=== PATIENT | female | born 1990 | race Caucasian/White ===

== ENCOUNTER 2024-07-14 07:50 | Day surgery (SDC) | payer OTHER ==
[2024-07-11 08:31] VITALS: BP 123/89
[~2024-07-14] VITALS: Ht 157.5 cm; Wt 88.6 kg
[~2024-07-14 07:50] MED LIST: CEFAZOLIN SODIUM 2 GM/20 ML SYR IV SCH; DEXAMETHASONE SOD PHOS 4 MG/ML VIAL IV SCH; IBLOOD GLUCOSE TEST STRIP 1 EA TEST VI PRN; LACTATED RINGER'S 1,000 ML IV SCH; LIDOCAINE HCL 1% 5 ML SDV INJ ONE
[2024-07-14 07:58] VITALS: BP 130/84
[2024-07-14] MEDS ORDERED: fentaNYL citrate 100 MCG/2 ML VIAL ONE (08:50)
--- NOTE | 2024-07-14 08:50 | NUR ---
0850 SPOKE WITH DIRECTOR [employer] RICHELLE- DIRECTOR [employer] WILL GIVE DECADRON ORDERED AFTER PT IS ASLEEP. PULLED DOSE OF 4MG GIVEN TO DIRECTOR [employer] TO GIVE.
[2024-07-14] MEDS ORDERED: ACETAMINOPHEN 1,000 MG/100 ML VIAL ONE (08:54)
[2024-07-14] MEDS ORDERED: ROCURONIUM BROMIDE 50 MG/5 ML SYR ONE (08:54)
[2024-07-14] MEDS ORDERED: MAGNESIUM SULFATE 1 GM/2 ML VIAL ONE (08:54)
[2024-07-14] MEDS ORDERED: DEXAMETHASONE SOD PHOS 4 MG/ML VIAL ONE (08:54)
[2024-07-14] MEDS ORDERED: propofoL 200 MG/20 ML VIAL ONE (08:54)
[2024-07-14] MEDS ORDERED: ondansetron HCL 4 MG/2 ML VIAL ONE (08:54)
[2024-07-14] MEDS ORDERED: LIDOCAINE HCL 2% 5 ML SDV ONE (08:54)
[2024-07-14] MEDS ORDERED: LIDOCAINE 1% W/ EPI 1:100,000 20 ML MDV ONE (09:00)
[2024-07-14] MEDS ORDERED: ESMOLOL HCL 100 MG/10 ML VIAL IV ONE (09:10)
[2024-07-14] MEDS ORDERED: SUGAMMADEX SODIUM 200 MG/2 ML ML ONE (10:14)
[2024-07-14] MEDS ORDERED: fentaNYL citrate 50 MCG/ML SDV IV PRN (10:15)
[2024-07-14] MEDS ORDERED: droPERidol 5 MG/2 ML VIAL IV PRN (10:15)
[2024-07-14] MEDS ORDERED: IBLOOD GLUCOSE TEST STRIP 1 EA TEST VI PRN (10:15)
[2024-07-14] MEDS ORDERED: NALOXONE HCL 0.4 MG SYR IV PRN ×2 (10:15→10:45)
[2024-07-14] MEDS ORDERED: KETOROLAC TROMETHAMINE 30 MG/ML VIAL IV PRN (10:15)
[2024-07-14] MEDS ORDERED: ondansetron HCL 4 MG/2 ML VIAL IV PRN (10:15)
[2024-07-14] MEDS ORDERED: OXYCODONE/APAP 7.5/325 TAB PO PRN (10:45)
[2024-07-14] MEDS ORDERED: IBUPROFEN 600 MG TAB PO PRN (10:45)
[2024-07-14] MEDS ORDERED: ACETAMINOPHEN 500 MG TAB PO PRN (10:45)
[2024-07-14] MEDS ORDERED: OXYCODON-ACETA1 EAC2 PO (10:46)
[2024-07-14] MEDS ORDERED: IBUPROFEN600 MG PO (10:46)
[2024-07-14] MEDS ORDERED: ACETAMINOPHEN500 MG PO (10:47)
--- NOTE | 2024-07-14 10:52 | NUR ---
07/14/24 1052 Heather Ndiaye 1031- PT ARRIVES TO THE PACU WITH A NATURAL AIRWAY AND 6L OF O2 VIA MASK. BREATHING IS EVEN AND UNLABORED. LR INFUSING IN L WRIST. ALL MONITORS PUT IN PLACE. VSS. PT IS IN SEMI FOWLERS POSITION, AND SURGICAL SITE ON THE THROAT IS CLEAN, DRY AND INTACT. PT SHOWS SOME FACIAL GRIMACING. WHEN ASKED THE PT MUMBLES SOME BUT NOT ABLE TO DECIFER. 1038- PT ASKED TO GIVE A THUMBS UP OR DOWN TO QUESTIONS OF PAIN AND NAUSEA AND PT IS UNABLE TO FOLLOW COMMANDS. NO APPARENT DISTRESS. 1042- PT WAKES TO VERBAL AND LIGHT TACTILE STIMULI. PT OPENS EYES AND IS ABLE TO FOLLOW COMMANDS. PT DENIES PAIN AND NAUSEA. O2 TURNED OFF AND REMOVED. 1050- MD AT BEDSIDE AND PLAN OF CARE DISCUSSED. PT DENIES PAIN AND NAUSEA OR QUESTIONS AND CONCERNS. PT RESTING WITH EYES CLOSED AND WAKES EASILY TO VERBAL STIMULI.
[2024-07-14 11:02] VITALS: BP 114/68
--- NOTE | 2024-07-14 11:19 | NUR ---
1100 PT ARRIVED TO DAY SURGERY ROOM 5 VIA AMBERACHER. PT REPORTS TOLERABLE 5/10 PAIN. NOT SHARP BUT 'JUST FEELS TIGHT' PT REPORTS NO TROUBLES WITH BREATHING. PT BREATHING EQUAL AND UNLABORED. PT REPORTS NO NAUSEA AT THIS TIME. PT AT BEDSIDE. PT SITTING SEMI FOWLERS IN BED WITH WATER AND PUDDING AT BEDSIDE, CALL LIGHT WITHIN REACH. PT HAS SCO PATCH BEHIND RIGHT EAR, PT EDUCATED ABOUT NOT TOUCHING SCO PATCH.
--- NOTE | 2024-07-14 12:09 | NUR ---
1155 SRT AMBULATED PT TO BATHROOM PT VOIDED 650 MLS OF CLEAR YELLOW URINE. PT AMBULATED BACK TO BED. 1205 PT GETTING DRESSED ON OWN WITH IN ROOM.
[2024-07-14 12:24] VITALS: BP 134/78
--- NOTE | 2024-07-14 12:25 | NUR ---
1215 DISCHARGE INFORMATION GONE OVER WITH PT AND AT BEDSIDE. NO QUESTIONS AT THIS TIME. PRESCRIPTION GIVEN TO PT 1218 PT DISCHARGED FROM DAY SURGERY VIA WHEELCHAIR TO FRONT OF THE HOSPITAL TO PT'S 'S CAR.
[2024-07-14] MEDS ORDERED: SEVOFLURANE 250 ML BTL INH ONE (15:10)
--- NOTE | 2024-07-16 15:12 | OR ---
[facility] [address], [place] [address] Signed DATE OF OPERATION: 07/14/2024 SURGEON: Tano Wade MD PREOPERATIVE DIAGNOSIS: Episodically symptomatic thyroglossal duct cyst. POSTOPERATIVE DIAGNOSIS: Episodically symptomatic thyroglossal duct cyst. PROCEDURE: Bijan procedure (excision of thyroglossal duct cyst with central excision of hyoid bone). ANESTHESIA: General endotracheal; Constantine Chaves, ROTATING EQUIPMENT SPECIALIST and local 5 mL of 0.25% Marcaine with epinephrine. INDICATION: This 33-year-old white woman presented to Dr. Malik last summer with a "lump in the neck" at the junction between her neck and her submental space. She had noticed it early in November after being ill for an unrelated cause. It increased in size and was somewhat tender. Examination at that time did not show a thyroid nodule. She was thought to have a benign cyst. She did undergo ultrasound of the area, which showed probable thyroglossal duct cyst. She additionally has undergone thyroid imaging including radionuclide uptake scan in August 2022 for possible thyroiditis, which did show uptake to the upper limits of normal. Her thyroid function tests are normal at this point, however. Given the episodic swelling of the likely thyroglossal duct cyst she was referred for excision. We discussed the details of the operation and have reviewed the risk of bleeding, infection, recurrent or persistent problem, and other unforeseen complications and she understands and wished to proceed. FINDINGS: The lesion was relatively small at this time. There was an enlarged regional lymph node that was excised in continuity. The stalk from the thyroglossal duct cyst appeared to be directed over the hyoid bone. The central portion of the hyoid bone and minimal amount was excised, however, and examination showed that it did not have any open connection to the hypopharynx, particularly. Thyroid cartilage was identified and well preserved as was the hyoid thyroid membrane proper. She tolerated the procedure well. Electronically Signed By: TANO WADE MD 07/16/24 1512 PATIENT NAME: BALDEMAR PEPPER OPERATIVE REPORT DATE OF : [birth year] REPORT #: [id number] PHYSICIAN: TANO WADE MD PCP: CAMILA MALIK MD REPORT IS CONFIDENTIAL AND NOT TO BE RELEASED WITHOUT AUTHORIZATION [facility] [address], [place] [address] Signed DESCRIPTION OF PROCEDURE: The patient was brought to the operating room, given a general endotracheal anesthetic. The arms were placed at the side in a position padded. Shoulder roll was placed to allow for mild extension of the neck. She had two dominant transverse creases of the neck and the upper one was deemed most appropriate for incision. Examination of the neck with an ultrasound device ([employer]) by ne identified the area to still have abnormal appearance. The neck was then prepared with a chlorhexidine solution and draped sterilely. A transverse incision was made in the upper skin crease as previously identified. Dissection carried through the thick subcutaneous layer ultimately encountering the platysma which was divided with electrocautery as well. A superior flap was developed and dissection through the subcutaneous space with palpation revealed a small nodule. Further dissection showed this to be a lymph node. Dissection of the soft tissue more deeply and towards the hypopharynx itself ultimately identified an area of thickened tissue and with further dissection, a stalk which would be consistent with a small thyroglossal duct cyst with associated lymph node enlargement. Photographs were taken. The hyoid bone which was in association with the stalk appeared to be inferior to the stalk itself. In the central portion, the hyoid bone was excised with bone cutters only 5 mm was excised really in aggregate. The stalk appeared not to penetrate beyond this. There was no sign of open connection to the hypopharynx. Cautery was used for hemostasis. The thyrohyoid membrane was intact and thyroid cartilage inferiorly was certainly well protected and was unharmed. A small amount of Neo hemostatic powder was applied to the bony ends of the hyoid bone. Irrigation was undertaken more fully and hemostasis was assured. The wound was closed in layers of interrupted 3-0 Vicryl for the subcutaneous tissue and platysma and running subcuticular 4-0 for the skin. Steri-Strips were applied as was an Acticoat dressing. She tolerated the procedure well. Blood loss was minimal. Complications none. MD WESTON Delvalle/BELEML /[id number] cc: Dr. Camila Malik Electronically Signed By: TANO WADE MD 07/16/24 1512 PATIENT NAME: BALDEMAR PEPPER OPERATIVE REPORT DATE OF : [birth year] REPORT #: [id number] PHYSICIAN: TANO WADE MD PCP: CAMILA MALIK MD REPORT IS CONFIDENTIAL AND NOT TO BE RELEASED WITHOUT AUTHORIZATION [facility] [address] [facility] [place], [place] [address] Signed Copies: ~ Electronically Signed By: TANO WADE MD 07/16/24 1512 PATIENT NAME: BALDEMAR PEPPER JAMILA OPERATIVE REPORT DATE OF : [birth year] REPORT #: [id number] PHYSICIAN: TANO WADE MD PCP: CAMILA MALIK MD REPORT IS CONFIDENTIAL AND NOT TO BE RELEASED WITHOUT AUTHORIZATION
--- NOTE | 2024-07-19 10:36 | PATH ---
[facility] [address] [place], [place] [address] Signed SPECIMEN(S): A TDC WITH PORTION OF HYOID BONE, SMALL LN SPECIMEN SOURCE: A. TDC WITH PORTION OF HYOID BONE, SMALL LN CLINICAL HISTORY: Neck mass. FINAL PATHOLOGIC DIAGNOSIS: Designated "thyroglossal duct cyst with central portion of hyoid bone and small lymph node": - Fragments of fibroadipose tissue and bone with no significant pathologic changes - One reactive lymph node BRP MICROSCOPIC EXAMINATION: Histologic sections of all submitted blocks are examined by light microscopy. These findings, together with the gross examination, support the pathologic diagnosis. GROSS DESCRIPTION: The specimen, labeled and designated "Alma Rosa Morrow, " and designated on the requisition "thyroglossal duct cyst with central portion of hyoid bone and small lymph node," is received in formalin and consists of 2.1 x 1.6 x 1.2 cm pink shaggy tissue fragment with a loosely attached pink-marte possible lymph node. The tissue fragment is inked blue and serially sectioned yellow-marte rubbery cut surface. Also present within the container is a 1.2 x 0.7 x 0.4 cm portion of hyoid bone. The bone is inked black. The specimen is entirely submitted in cassettes A1-A2 and placed into [employer] for decalcification prior to processing. FB (under the direct supervision of a pathologist) The Gross Description was prepared using a voice recognition system. The report was reviewed for accuracy; however, sound-alike word errors, addition and/or deletions may occur. If there is any question about this report, please contact Client Services. ADDITIONAL NOTES: Immunohistochemical and/or in situ hybridization studies if performed in this case included appropriate positive controls that reacted as expected. This PATIENT NAME: BALDEMAR MORROW PATHOLOGY DATE OF : [birth year] REPORT #: [id number] PHYSICIAN: POLO PATHOLOGY PCP: BRANDI MALIK MD REPORT IS CONFIDENTIAL AND NOT TO BE RELEASED WITHOUT AUTHORIZATION [facility] [address] [facility] [place] [address] Signed test was developed and its performance characteristics determined by [facility] [facility]. It has not been cleared or approved by the U.S. Food and Drug Administration. The FDA has determined that such clearance or approval is not necessary. This test is used for clinical purposes. It should not be regarded as investigational or for research. [employer] [facility] is certified under the Clinical Laboratory Improvement Amendments of 1988 (CLIA) as qualified to perform high complexity clinical laboratory testing. PERFORMING LABORATORY: Technical component was performed by [facility], [address] [place] [address] (CLIA# [id number]). Professional interpretation was performed by [facility] - [facility], [address] [place] [address] (CLIA#: [id number]). Diagnostician: Yinka Alcala MD Pathologist Electronically Signed 07/19/2024 Copies: ~ PATIENT NAME: BALDEMAR MORROW PATHOLOGY DATE OF : [birth year] REPORT #: [id number] PHYSICIAN: POLO GOINS PCP: BRANDI MALIK MD REPORT IS CONFIDENTIAL AND NOT TO BE RELEASED WITHOUT AUTHORIZATION
== END 2024-07-14 12:18 | disposition home or self-care (01) ==
LOC: DS 07:50 → EDSTATUS 09:30 → DS 09:30 → OPS 09:30 → DS 12:18
PROVIDERS: ATTEND Surgery
PROC: 0NBX0ZZ Excision of Hyoid Bone, Open Approach (ICD-10-PCS; 2024-07-14)
PROC: 0WB60ZZ Excision of Neck, Open Approach (ICD-10-PCS; principal; 2024-07-14 09:00)
DX: E04.1 Nontoxic single thyroid nodule (principal); Z97.5 Presence of (intrauterine) contraceptive device; Z88.1 Allergy status to other antibiotic agents
CPT/HCPCS: 00300; J0131; J0690; J1100; J2003; J2405; J2704; J3010; J3475; J3490; J7121